=== PATIENT | female | born 2000 | race Caucasian/White ===

== ENCOUNTER 2024-12-07 21:03 | Emergency (ER) | payer SELFPAY ==
[2024-12-07 21:11] VITALS: BP 147/93
--- NOTE | 2024-12-07 22:27 | ED.GENMED ---
History of Present Illness
General
Chief Complaint: Musculo-Skeletal Complaint
Source: patient
Exam Limitations: none
Time Seen by Provider: 12/07/24 22:12
Nursing documentation reviewed up to this point in time: agreed with
History of Present Illness
History of Present Illness:
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 She
denies fall. She complains of pain, swelling and bruising dorsal aspect of her left hand that has been persistent despite ice, elevation. She has been taking Tylenol intermittently for pain. She avoids NSAIDs due to prior history of hemorrhagic
gastritis.
She notes intermittent tingling to her distal digits but no weakness. She continues to work at a restaurant. She has attempted to wrap her left hand with an Nitin wrap without significant improvement in pain.
She denies risk of .
Past History
Past History
ED Past Medical History: Asthma and GERD (Hemorrhagic gastritis related to NSAIDs)
Social History
Tobacco: Non-smoker
Drug: None
Personal: Single
Living: with family
Employment: Employed
Family History
Family History: Other (Noncontributory)
Phy Exam
Physical Exam
Physical Exam:
PHYSICAL EXAMINATION:
General: 24-year-old female appears her stated age, awake and alert, pleasant, appears in no acute distress.
Neuro: alert and oriented. no focal neurological deficits
Psychiatric: well kept. interactive and cooperative
Musculoskeletal: [Left dorsal hand with very minimal ecchymosis, mild soft tissues swelling as well as mild to moderate tenderness mid to distal aspect of the 3rd and 4th metacarpals. There is very minimal soft tissue
swelling of 2nd, 3rd and 4th digits. Full range of motion of digits with increased dorsal hand pain with flexion at MCP joints. Sensation and strength intact. Distal digits with rapid capillary refill. Peripheral pulses are full and equal.
There is no tenderness to the wrist nor forearm.]
Course
Orders/Labs/Results
Orders:
Orders
12/07/24 21:14
Hand, Left 3 View [CR Hand - Left Min 3 Views] Urgent
Comment:
Reason For Exam: left hand injury at base of middle finger
12/07/24 22:23
Splints/Slings/Crut- Treatment ONCE
Crutches: No
Location: Left
Type of Splint: Volar
Ketorolac [Toradol] 60 mg IM NOW STA
Vital Signs
Initial and Last Documented VS:
Initial Vital Signs
Temp Pulse Resp BP Pulse Ox
98.6 F 95 18 147/93 98
12/07/24 21:11 12/07/24 21:11 12/07/24 21:11 12/07/24 21:11 12/07/24 21:11
Last Documented Vital Signs
Temp Pulse Resp BP Pulse Ox
98.6 F 95 18 147/93 98
12/07/24 21:11 12/07/24 21:11 12/07/24 21:11 12/07/24 21:11 12/07/24 21:11
MDM/Problems Addressed
Differential Diagnosis Includes:
History and exam most consistent with soft tissue contusion. Concern for potential fracture thus x-ray obtained.
Left hand x-ray, interpreted by myself, is unremarkable. No evidence of fracture.
Will give a one-time dose of Toradol for pain. Recommend continuing Tylenol and will add topical diclofenac gel.
Will place an vulvar hand/wrist splint to be worn during the day, off at nighttime.
Recommend rest, local heat.
As this is a work related injury, recommend she follow-up with her work health provider.
Chronic conditions affecting care: Other (Prior history of GI bleed related to NSAIDs.)
*Radiology
Radiology exam reviewed: preliminary read by ED provider (Left hand x-ray is unremarkable. No evidence of fracture.)
*Pulse Oximetry
Patient hypoxic: no
*Critical Care Note
Total Time (30-74mins, 75-104mins- exclusive of procedures): Not Applicable
ED Attending Note
-
Portions of this chart may have been created with voice recognition software.� Occasional wrong word or��sound alike� substitutions may have occurred due to the inherent limitations of voice recognition software.
Discharge Plan
Departure
Patient Disposition: Home (Routine Discharge)
Date of Disposition: 12/07/24
Time of Disposition: 22:34
Patient with high blood pressure during this ER visit?: No
Condition: Good
Discharge Problem:
Contusion of dorsum of left hand
Instructions: Contusion (DC)
Prescriptions:
New
diclofenac sodium [Solaraze] 3 % gel
1 applic topical BIDPRN PRN (Reason: pain) Qty: 100 0RF
Rx Instructions:
apply to back of left hand
Activity Restrictions/Additional Instructions:
Wear splint during the day, off at nighttime.
Follow-up with your work health provider for recheck.
Interventions
Interventions:
*Risk Screen - Suicide Last Done: 12/07/24 22:30
*General Assessment Last Done: 12/07/24 22:30
*Neglect/Abuse Screening Last Done: 12/07/24 22:30
*ED- Fall Risk Assessment Last Done: 12/07/24 22:30
*ED COVID-19 Vaccine History Last Done: 12/07/24 22:30
ED-Musculoskeletal Assessment Last Done: 12/07/24 22:30
Discharge Date and Time
Print Language: GIBRALTARIAN
[2024-12-07] MEDS: TORADOL 60 MG IM (22:31)
== END 2024-12-07 22:41 | disposition home or self-care (01) ==
LOC: EMR 21:03
PROVIDERS: EMERGENCY PHYSICIAN Emergency Medicine; FAMILY PHYSICIAN Family Medicine
DX: S60.222A Contusion of left hand, initial encounter (principal); Y99.0 Civilian activity done for income or pay; J45.909 Unspecified asthma, uncomplicated; K21.9 Gastro-esophageal reflux disease without esophagitis; Z87.19 Personal history of other diseases of the digestive system
CPT/HCPCS: 99283; 73130